=== PATIENT | male | born 1960 | race Caucasian/White ===

== ENCOUNTER → 2018-06-16 12:55 | Outpatient (CLI) | payer OTHER, SELFPAY ==
--- NOTE | 2018-06-16 13:01 | RAD_ITS ---
STUDY: X-RAY CHEST REASON FOR EXAM: Male, 58 years old. Nonproductive cough for one month, history of recent melanoma surgery on the back TECHNIQUE: PA and lateral views of the chest. COMPARISON: None. FINDINGS: The lungs are clear and expanded. There is no demonstrated pleural abnormality. Normal size heart. Normal mediastinum and maria d. Normal visualized pulmonary arteries. Normal visualized aortic arch and descending thoracic aorta. Normal visualized thoracic spine. Normal visualized ribs, clavicles, and shoulders. There is no demonstrated abnormality of the visualized soft tissue structures of the upper abdomen. RAD/Chest PA and Lateral IMPRESSION: Normal x-ray examination of the chest. Electronically Signed: Montrell Juarez MD at 20:02 EST , Service support ,
== END ==
LOC: RAD 12:59
PROVIDERS: Referring Provider Nurse Practitioner Family; Visit Provider Nurse Practitioner Family
DX: R05 Cough (principal)
CPT/HCPCS: 71046